=== PATIENT | female | born 2000 | race Two or more races ===

== ENCOUNTER 2023-04-29 16:22 | Emergency (ER) | payer MEDICAID, OTHER ==
[~2023-04-29] VITALS: Ht 162.6 cm; Wt 97.6 kg
[2023-04-29 16:23] VITALS: BP 121/77; RESP 18; O2SAT 99
[2023-04-29 16:35] VITALS: PULSE 151
[2023-04-29 17:15] LABS: Basophils # (auto) 0 10 ^3/uL (0-0.2); Basophils % (auto) 0.2 % (0.0-2.0); Eosinophils # (auto) 0 10 ^3/uL (0-0.8); Eosinophils % (auto) 0.1 % (0.0-7.0); Hemoglobin 14.9 g/dL (12.2-16.2); Lymphocytes # (auto) 0.5 10 ^3/uL (0.4-5.4); Lymphocytes % (auto) 3.9 % (10.0-50.0); Mean Corpuscular Hemoglobin 28.9 pg (28.0-32.0); Mean Corpuscular Hgb Conc. 33.8 g/dL (32.0-36.0); Mean Corpuscular Volume 85.3 fL (80.0-100.0); Monocytes # (auto) 0.4 10 ^3/uL (0-1.3); Monocytes % (auto) 2.6 % (0.0-12.0); Neutrophils # (auto) 13.1 10 ^3/uL (1.6-8.6); Neutrophils % (auto) 93.2 % (37.0-80.0); Nucleated Red Blood Cells % 0.1 %; Red Blood Cells 5.15 10^6/uL (4.0-5.20); Red Cell Distribution Width 15.1 % (11.8-14.3)
[2023-04-29 17:36] LABS: Alanine Aminotransferase 56 U/L (7-40); Alkaline Phosphatase 103 U/L (46-116); Anion Gap 8 (5-15); BUN/Creatinine Ratio 30.3 (10.0-20.0); Blood Urea Nitrogen 20 mg/dL (9-23); Calcium 9.2 mg/dL (8.7-10.4); Carbon Dioxide 27 mmol/L (20-30); Chloride 100 mmol/L (98-107); Glucose 106 mg/dL (74-106); Potassium 3.8 mmol/L (3.5-5.1); Sodium 135 mmol/L (136-145)
[2023-04-29 17:37] LABS: Albumin 4.8 g/dL (3.2-4.8); Aspartate Aminotransferase 24 U/L (13-40); Bilirubin, Total 1.8 mg/dL (0.2-1.0); Total Protein 7.6 g/dL (5.7-8.2)
== END 2023-04-29 19:16 | disposition left against medical advice (07) ==
LOC: ER 16:22
DX: R07.9 Chest pain, unspecified (principal); Z53.21 Procedure and treatment not carried out due to patient leaving prior to being seen by health care provider
CPT/HCPCS: 36415; 80053; 84484; 85025

== ENCOUNTER 2023-06-12 16:50 | Emergency (ER) | payer MEDICAID ==
[~2023-06-12] VITALS: Ht 162.6 cm; Wt 98.0 kg
[2023-06-12] MEDS ORDERED: SODIUM CHLORIDE 0.9% 1,000 ML IV ONE ×2 (17:30)
[2023-06-12] MEDS ORDERED: ACETAMINOPHEN 325 MG TAB PO ONE (17:30)
[2023-06-12 17:48] LABS: Basophils # (auto) 0 10 ^3/uL (0-0.2); Basophils % (auto) 0.5 % (0.0-2.0); Eosinophils # (auto) 0.1 10 ^3/uL (0-0.8); Eosinophils % (auto) 0.6 % (0.0-7.0); Hematocrit 42.9 % (36.0-46.0); Hemoglobin 14.6 g/dL (12.2-16.2); Lymphocytes # (auto) 0.7 10 ^3/uL (0.4-5.4); Lymphocytes % (auto) 7.7 % (10.0-50.0); Mean Corpuscular Hemoglobin 28.8 pg (28.0-32.0); Mean Corpuscular Volume 84.7 fL (80.0-100.0); Monocytes # (auto) 0.8 10 ^3/uL (0-1.3); Monocytes % (auto) 9.1 % (0.0-12.0); Neutrophils # (auto) 7.3 10 ^3/uL (1.6-8.6); Neutrophils % (auto) 82.1 % (37.0-80.0); Nucleated Red Blood Cells % 0.1 %; Red Blood Cells 5.06 10^6/uL (4.0-5.20); Red Cell Distribution Width 13.6 % (11.8-14.3); White Blood Cell 8.8 10^3/uL (4.4-10.8)
[2023-06-12] MEDS ORDERED: METH4PAK PO (21:53)
[2023-06-12] MEDS ORDERED: AMOX875T4 PO (21:53)
[2023-06-12] MEDS ORDERED: ALBU108A5 IN (21:53)
[2023-06-12] MEDS ORDERED: PROM1SOL4 PO (21:53)
[2023-06-12 22:09] VITALS: BP 142/85; PULSE 106; RESP 18; TEMP 100.2; O2SAT 98
== END 2023-06-12 22:13 | disposition home or self-care (01) ==
LOC: ER 16:50
DX: R07.9 Chest pain, unspecified (principal); J18.9 Pneumonia, unspecified organism; R50.9 Fever, unspecified
CPT/HCPCS: 36415; 71045; 84484; 85025; 93005; 96360; 99285; J7030

== ENCOUNTER 2024-04-18 08:26 | Emergency (ER) | payer MEDICAID ==
[~2024-04-18] VITALS: Ht 162.6 cm; Wt 96.8 kg
[~2024-04-18 08:26] MED LIST: ALBU108A5 IN; AMOX875T4 PO; METH4PAK PO; PROM1SOL4 PO
[2024-04-18 08:49] LABS: Urine Bacteria None Seen /hpf (None Seen)
--- NOTE | 2024-04-18 08:53 | ED.PDOC ---
GI ASSESSMENT HPI Comments 24 Y F, presents to the ED with N/V/D persistent for 1wk. Patient relays that she has not been able to hold down food for 1wk and has been consistently vomiting with associated diarrhea. Patient states that her last menstrual period was 03/03/2024. Patient also states that she is experiencing R calf cramps. Patient denies any coughing, congestion, or body aches. Chief Complaint: Nausea/Vomiting Time Seen by MD: 08:37 Primary Care Provider: OTIS Reviewed Notes: Medications, Allergies Allergies: Coded Allergies: NO KNOWN ALLERGIES (Unverified , 04/29/23) Home Meds Active Scripts Promethazine-Dm (Promethazine Dm 6.25-15 mg/5Ml) 1 Chelsy Chelsy, 10 ML PO TID PRN, #240 ML Prov:JULES HARE UNIX ADMINISTRATOR 06/12/23 Albuterol Sulfate (Albuterol Sulfate Hfa) 108 Mcg/Act Aer, 108 MCG IN TID PRN, #1 AER Prov:JULES HARE 06/12/23 Methylprednisolone (Medrol Dosepak) 4 Mg Rashid, 4 MG PO UD, #21 TAB UAD Prov:JULES HAREP 06/12/23 Amoxicillin & Pot Clavulanate (Amoxicillin/Potassium Cla) 875 Mg Tab, 1 TAB PO BID for 10 Days, #20 TAB Prov:JULES HARE 06/12/23 Information Source: Patient Mode of Arrival: Ambulatory Timing: Weeks Duration: Since onset Quality: None Vomitus: Watery Stool: Watery Severity: Moderate Recent: None Recent Hx of: None Pain Location: None Modifying Factors: Nothing Associated sign and symptoms: Nausea, Vomiting, Diarrhea, Other (R calf cramps) Past Medical History PAST MEDICAL HISTORY: Denies Surgical History: Denies all surgeries COMMISSARY AGENT History: Denies all COMMISSARY AGENT Hx Family History Family History: Unknown Social History Smoker: Non-Smoker Alcohol: Denies ETOH Use Drugs: Marijuana Lives In: Home Constitutional: denies: chills, diaphoresis, fatigue, fever, malaise, sweats, weakness, others EENTM: denies: blurred vision, double vision, ear bleeding, ear discharge, ear drainage, ear pain, ear ringing, eye pain, eye redness, hearing loss, mouth pa in, mouth swelling, nasal discharge, nose bleeding, nose congestion, nose pain, photophobia, tearing, throat pain, throat swelling, voice changes, others Respiratory: denies: cough, hemoptysis, orthopnea, SOB at rest, shortness of breath, SOB with excertion, stridor, wheezing, others Cardiovascular: denies: chest pain, dizzy spells, diaphoresis, Dyspnea on exertion, edema, irregular heart beat, left arm pain, lightheadedness, palpitations, PND, syncope, others Gastrointestinal: reports: diarrhea, nausea, poor fluid intake, vomiting; denies: abdomen distended, abdominal pain, blood streaked bowels, constipated, dysphagia, difficulty swallowing, hematemesis, melena, poor appetite, rectal bleeding, rectal pain, others Genitourinary: denies: abnormal vagina bleeding, burning, dyspareunia, dysuria, flank pain, frequency, hematuria, incontinence, pain, , vagina discharge, urgency, others Neurological: denies: dizziness, fainting, headache, left sided numbness, left sided weakness, numbness, paresthesia, pre-existing deficit, right sided numbness, right sided weakness, seizure, speech problems, tingling, tremors, weakness, others Musculoskeletal: reports: others (muscle cramps); denies: back pain, gout, joint pain, joint swelling, muscle pain, muscle stiffness, neck pain Integumetry: denies: bruises, change in color, change in hair/nails, dryness, laceration, lesions, lumps, rash, wounds, others Allergic/Immunocompromised: denies: Difficulty Healing, Frequent Infections, Hives, Itching, others Hematologic/Lymphatic: denies: anemia, blood clots, easy bleeding, easy bruising, swollen glands, others Endocrine: denies: excessive hunger, excessive sweating, excessive thirst, excessive urination, flushing, intolerance to cold, intolerance to heat, unexplained weight gain, unexplained weight loss, others Psychiatric: denies: anxiety, bipolar disorder, depression, hopeless, panic disorder, schizophrenia, sleepless, suicidal, others All Other Systems: Reviewed and Negative Physical Exam General Appearance: No Apparent Distress, Normal HEENT: Normal ENT Inspection, Pharynx Normal, TMs Normal Neck: Full Range of Motion, Non-Tender, Normal, Normal Inspection Respiratory: Chest Non-Tender, Lungs Clear, No Accessory Muscle Use, No Respiratory Distress, Normal Breath Sounds Cardiovascular: No Edema, No JVD, No Murmur, No Gallop, Normal Peripheral Pulses, Regular Rate/Rhythm Breast Exam: Deferred Gastrointestinal: No Organomegaly, Non Tender, No Pulsatile Mass, Normal Bowel Sounds, Soft Genitalia: Deferred Pelvic: Deferred Rectal: Deferred Extremities: No calf tenderness, Normal capillary refill, Normal inspection, Normal range of motion, Non-tender, No pedal edema Musculoskeletal : Apperance: Normal Neurologic: Alert, results technician II-XII nml as Tested, No Motor Deficits, Normal Affect, Normal Mood, No Sensory Deficits Cerebellar Function: Normal Reflexes: Normal Skin: Dry, Normal Color, Warm Lymphatic: No Adenopathy Was a procedure done? Was a procedure done?: No GI differential Dx Differential Diagnosis: Electrolyte Imbalance, Food Poisoning, , Viral X-Ray, Labs, Meds, VS Vital Signs Date Time Temp Pulse Resp B/P (MAP) Pulse Ox O2 Delivery O2 Flow Rate FiO2 04/18/24 09:05 98.2 87 20 136/91 (106) 98 98.2 04/18/24 09:05 83 18 98 Room Air* 0 21 04/18/24 08:32 97.0 105 18 123/78 (93) 98 Lab Test 04/18/24 08:58 04/18/24 08:44 Range/Units White Blood Count 14.0 H 4.4-10.8 10^3/uL Red Blood Count 5.50 H 4.0-5.20 10^6/uL Hemoglobin 16.0 12.2-16.2 g/dL Hematocrit 46.9 H 36.0-46.0 % Mean Corpuscular Volume 85.4 80.0-100.0 fL Mean Corpuscular Hemoglobin 29.0 28.0-32.0 pg Mean Corpuscular Hemoglobin Concent 34.0 32.0-36.0 g/dL Red Cell Distribution Width 13.4 11.8-14.3 % Platelet Count 262 140-450 10^3/uL Mean Platelet Volume 8.7 6.9-10.8 fL Neutrophils (%) (Auto) 87.6 H 37.0-80.0 % Lymphocytes (%) (Auto) 7.4 L 10.0-50.0 % Monocytes (%) (Auto) 4.0 0.0-12.0 % Eosinophils (%) (Auto) 0.7 0.0-7.0 % Basophils (%) (Auto) 0.3 0.0-2.0 % Neutrophils # (Auto) 12.3 H 1.6-8.6 10 ^3/uL Lymphocytes # (Auto) 1.0 0.4-5.4 10 ^3/uL Monocytes # (Auto) 0.6 0-1.3 10 ^3/uL Eosinophils # (Auto) 0.1 0-0.8 10 ^3/uL Basophils # (Auto) 0 0-0.2 10 ^3/uL Nucleated Red Blood Cells 0.0 % Sodium Level 139 136-145 mmol/L Potassium Level 4.0 3.5-5.1 mmol/L Chloride Level 108 H 98-107 mmol/L Carbon Dioxide Level 21 20-31 mmol/L Anion Gap 10 5-15 Blood Urea Nitrogen 10 9-23 mg/dL Creatinine 0.70 0.550-1.02 mg/dL Glomerular Filtration Rate Calc 123 >90 mL/min BUN/Creatinine Ratio 14.3 10.0-20.0 Serum Glucose 124 H 74-106 mg/dL Calcium Level 9.7 8.7-10.4 mg/dL Total Bilirubin 1.3 H 0.2-1.0 mg/dL Aspartate Amino Transferase (AST) 18 13-40 U/L Alanine Aminotransferase (ALT) 37 7-40 U/L Alkaline Phosphatase 103 46-116 U/L Total Protein 7.7 5.7-8.2 g/dL Albumin 4.7 3.2-4.8 g/dL Beta HCG, Quantitative 05878.6 H 1.5-4.2 mIU/mL Urine Color Light-yellow Yellow Urine Clarity Cloudy H Clear Urine pH 5.5 5.0-9.0 Urine Specific [place] 1.019 1.001-1.035 Urine Protein Trace H Negative Urine Ketones 1+ H Negative Urine Blood Negative Negative /uL Urine Nitrite Negative Negative Urine Bilirubin Negative Negative Urine Urobilinogen Normal Negative mg/dL Urine Leukocyte Esterase 3+ Negative /uL Urine RBC 8 0 - 4 /hpf Urine WBC 9 0 - 5 /hpf Urine Squamous Epithelial Cells Few <5 /hpf Urine Bacteria None seen None Seen /hpf Urine Mucus Few None Seen Urine Glucose Normal Normal mg/dL Urine Test Positive Negative Current Medications Medications (Trade) Dose Ordered Sig/Nabor Route Start Time Stop Time Status Last Admin Sodium Chloride 1,000 ml @ 1,000 mls/hr Q1H ONCE IV 04/18/24 08:45 04/18/24 09:44 DC 04/18/24 09:05 Ondansetron HCl (Zofran) 4 mg ONCE ONCE IV 04/18/24 08:45 04/18/24 08:46 DC 04/18/24 09:05 Sodium Chloride 1,000 ml @ 1,000 mls/hr Q1H ONCE IV 04/18/24 10:00 04/18/24 10:59 DC 04/18/24 10:19 [place] [address] Ph: [phone] DIAGNOSTIC IMAGING Diagnostic Imaging Report : [id number] Signed PATIENT: AALIYAH GLEASON ACCT: [id number] UNIT: [id number] : 2000 LOC: ER ROOM / BED: / AGE / SEX: 24 / F ADM STATUS: REG ER SERVICE 0000 ORDERING PHYSICIAN: YASSINE ANDERSON MD PROCEDURE(s): OBTVG - OB TRANS VAGINAL US REASON: COMFIRM IUP ORDER NUMBER(s): [id number], ACCESSION NUMBER(s): [id number] CLINICAL HISTORY: new , confirm intrauterine . COMPARISON: None TECHNIQUE: Transvaginal and transabdominal grayscale sonographic imaging of the uterus and ovaries was performed, assisted by color Doppler technique. Duplex Doppler ultrasound of both ovaries was also performed. FINDINGS: The uterus measures 10.1 x 6.1 x 6.3 cm. There is an intrauterine ges tational sac with yolk sac visualized. No pole identified at this time. Gestational sac diameter measures 1.06 cm, corresponding to an estimated gestational age of 5 weeks 1 day. Right ovary measures 3.2 x 1.9 x 2.5 cm. Arterial and venous blood flow demonstrated. Cystic structure in the right ovary measures 1.92 cm, possible corpus luteal cyst. Left ovary is not visualized. IMPRESSION: 1. Intrauterine gestational sac with yolk sac identified. Estimated gestational age of 5 weeks 1 day based on gestational sac diameter. No pole identified at this time, likely due to early gestational age. 2. Likely corpus luteal cyst in the right ovary. Left ovary not visualized. ATED BY: JOSUE ZACARIAS DO DICTATED DATE/TIME: 04/18/24 1151 SIGNED BY: JOSUE ZACARIAS DO SIGNED DATE/TIME: 04/18/24 1151 CC: Time of 1ST Reevaluation: 09:07 Reevaluation 1ST: Unchanged Patient Education/Counseling: Diagnosis, Treatment Family Education/Counseling: No Family Present Departure 1 Departure Time of Disposition: 12:23 (Patient is . Patient has leukocytes we will cover with antibiotics. We will discharge patient with Zofran for hyperemesis gravidarum.) Impression: Primary Impression: Hyperemesis gravidarum before end of 22 week gestation with dehydration Additional Impressions: Qualified Codes: Z3A.01 - Less than 8 weeks gestation of UTI (urinary tract infection) Qualified Codes: N30.00 - Acute cystitis without hematuria Disposition: HOME / SELF CARE / HOMELESS Condition: Stable Referrals: TOVA GREENFIELD DO Additional Instructions: You are . Your ultrasound dates you had approximately 5 weeks and 1 day. You were prescribed Zofran to take as needed for nausea. You also had some white cells in your urine. You were prescribed antibiotics. Please take as directed. You were referred to OBGYN. Please follow up with them my your earliest convenience. If your symptoms worsen or if any other concerns please return to the emergency room. e-Prescriptions Cephalexin Monohydrate (Cephalexin) 500 Mg Cap 500 MG PO Q6HR for 5 Days, #20 MG Prov: YASSINE ANDERSON MD 04/18/24 Ondansetron Odt 4MG Tab (ZOFRAN PO) 4 Mg Tb 4 MG PO TID PRN for 4 Days, #12 TAB ODT TAB-DISSOLVE IN MOUTH, THEN SWALLOW Prov: YASSINE ANDERSON MD 04/18/24 Discharged With: Self Critical Care Note Critical Care Time?: No Stability Stability form required: No Heart Score Heart Score: Heart Score Response (Comments) Value History N/A 0 EKG N/A 0 Age N/A 0 Risk Factors N/A 0 Troponin N/A 0 Total 0 I personally scribed for YASSINE ANDERSON MD ([email or web address]) on 04/18/24 at 08:53. Electronically submitted by Belkis Jack ([email or web address]). I personally scribed for YASSINE ANDERSON MD ([email or web address]) on 04/18/24 at 11:55. Electronically submitted by Corinne Diaz ([email or web address]). YASSINE ANDERSON MD Apr 18, 2024 08:53
[2024-04-18 09:02] LABS: Urine Blood Negative /uL (Negative); Urine Color Light-Yellow (Yellow); Urine Mucus FEW (None Seen); Urine Protein, UAD TRACE (Negative); Urine Specific Gravity 1.019 (1.001-1.035); Urine Urobilinogen Normal (Negative); Urine WBC 9 /hpf (0 - 5); Urine pH 5.5 (5.0-9.0)
[2024-04-18 09:05] VITALS: PULSE 83; RESP 18; O2SAT 98
[2024-04-18] MEDS: SODIUM CHLORIDE 0.9% 1,000 ML IV ONE ×2 (09:05→10:19)
[2024-04-18] MEDS: ONDANSETRON HCL 4 MG/2 ML VIAL IV ONE (09:05)
[2024-04-18 09:09] LABS: Basophils # (auto) 0 10 ^3/uL (0-0.2); Basophils % (auto) 0.3 % (0.0-2.0); Eosinophils # (auto) 0.1 10 ^3/uL (0-0.8); Eosinophils % (auto) 0.7 % (0.0-7.0); Hematocrit 46.9 % (36.0-46.0); Lymphocytes % (auto) 7.4 % (10.0-50.0); Mean Corpuscular Volume 85.4 fL (80.0-100.0); Monocytes # (auto) 0.6 10 ^3/uL (0-1.3); Neutrophils # (auto) 12.3 10 ^3/uL (1.6-8.6); Neutrophils % (auto) 87.6 % (37.0-80.0); Platelet Count (auto) 262 10^3/uL (140-450); Red Cell Distribution Width 13.4 % (11.8-14.3)
[2024-04-18 09:23] LABS: Urine Clarity Cloudy (Clear)
[2024-04-18 09:25] LABS: Alanine Aminotransferase 37 U/L (7-40); Albumin 4.7 g/dL (3.2-4.8); Alkaline Phosphatase 103 U/L (46-116); Anion Gap 10 (5-15); Aspartate Aminotransferase 18 U/L (13-40); BUN/Creatinine Ratio 14.3 (10.0-20.0); Blood Urea Nitrogen 10 mg/dL (9-23); Calcium 9.7 mg/dL (8.7-10.4); Carbon Dioxide 21 mmol/L (20-31); Sodium 139 mmol/L (136-145)
[2024-04-18 09:26] LABS: Chloride 108 mmol/L (98-107); Glucose 124 mg/dL (74-106); Total Protein 7.7 g/dL (5.7-8.2)
[2024-04-18 09:30] LABS: Bilirubin, Total 1.3 mg/dL (0.2-1.0)
--- NOTE | 2024-04-18 11:53 | DVH ---
CLINICAL HISTORY: new , confirm intrauterine . COMPARISON: None TECHNIQUE: Transvaginal and transabdominal grayscale sonographic imaging of the uterus and ovaries wa s performed, assisted by color Doppler technique. Duplex Doppler ultrasound of both ovaries was also performed. FINDINGS: The uterus measures 10.1 x 6.1 x 6.3 cm. There is an intrauterine gestational sac with yolk sac visualized. No pole identified at this time. Gestational sac diameter measures 1.06 cm, c orresponding to an estimated gestational age of 5 weeks 1 day. Right ovary measures 3.2 x 1.9 x 2.5 cm. Arterial and venous blood flow demonstrated. Cystic structur e in the right ovary measures 1.92 cm, possible corpus luteal cyst. Left ovary is not visualized. IMPRESSION: 1. Intrauterine gestational sac with yolk sac identified. Estimated gestational age of 5 weeks 1 day based on gestational sac diameter. No pole identified at this time, likely due to early gestati onal age. 2. Likely corpus luteal cyst in the right ovary. Left ovary not visualized.
[2024-04-18] MEDS ORDERED: CEPH500C PO (12:29)
[2024-04-18] MEDS ORDERED: ZOFR4T PO (12:29)
[2024-04-18 12:43] VITALS: BP 127/71; PULSE 100; RESP 18; TEMP 97.7; O2SAT 100
== END 2024-04-18 12:46 | disposition home or self-care (01) ==
LOC: ER 08:26
DX: O21.1 Hyperemesis gravidarum with metabolic disturbance (principal); R10.2 Pelvic and perineal pain; O23.41 Unspecified infection of urinary tract in pregnancy, first trimester; E86.0 Dehydration; F15.90 Other stimulant use, unspecified, uncomplicated; Z3A.01 Less than 8 weeks gestation of pregnancy; Z79.899 Other long term (current) drug therapy
CPT/HCPCS: 36415; 76801; 76817; 80053; 81001; 81025; 84702; 85025; 96361; 96374; 99285; J2405; J7030

== ENCOUNTER 2024-09-09 22:47 | Observation (INO) | payer MEDICAID, OTHER ==
[~2024-09-09] VITALS: Ht 162.6 cm; Wt 92.5 kg
[~2024-09-09 22:47] MED LIST changes: +CEPH500C PO; +ZOFR4T PO
[2024-09-09] MEDS: TERBUTALINE SULFATE 1 MG/ML 1ML VIAL SC SCH (23:38)
[2024-09-10] MEDS: BETAMETHASONE ACET (30mg/5ml) 5ml Vial 6mg/ml IM ONE (00:21)
--- NOTE | 2024-09-10 00:40 | DVH ---
EXAM: US OB ULTRASOUND COMP GTR 14 WKS HISTORY: Vaginal bleeding TECHNIQUE: Multiple real-time grayscale images of the gravid uterus with duplex Doppler color flow an d M-mode spectral analysis. COMPARISON: None FINDINGS: IUP single live fetus at 26 weeks, 6 days average ultrasound age (AUA) based on composite averages of the BPD, head circumference, abdominal circumference and femur length MEASUREMENTS: BPD: 6.86 cm GA: 27 w 4d HC: 25.32 cm GA: 27w 3d AC: 22.99 cm GA: 27w 2d FL: 4.59 cm GA: 25w 2d Estimated weight 964 grams heart rate 144 beats per minute FRANCISCO 16 cm ANATOMIC SURVEY: Breech Presentation Posterior placenta without previa or abruption Cervix measuures 3.3 cm IMPRESSION: 1. IUP single live fetus at 26 weeks, 6 days AUA corresponding to an ISAK of December 10, 2024. 2. No abnormality detected.
[2024-09-10] MEDS: NIFEdipine 10 MG CAP PO ONE (01:20)
--- NOTE | 2024-09-10 01:22 | DVHDS2 ---
Physician Discharge Progress N Final Diagnosis: contractions Problems List: (1) 26 weeks gestation of (2) contractions Operations or Procedures: Operations or Procedures S: pt is a 24 yo @ 26.3 wks IUP in triage for vaginal pressure and tightening over abdomen. Pt reports vaginal bleeding while wiping around 5pm on 09/09/24, no vaginal bleeding while in OB triage. Pt denies sexual intercourse or anything in the vagina for at least 24 hours. Pt denies leakage of fluid and endorses +FM. Pt is staying with her mother, care established at [facility], denies complications. OB history: 3 fullterm NSVDs, AB x1. Pt reports she is blood type O negative, has not received Rhogam yet. PMH denies. O: VSS. Vaginal exam refused by patient after educating on need EFM: FHR 150 bpm, moderate variability with accels, no decels. [place]: q1-3minutes apart when pt arrived; none noted at discharge OB Complete SONO WNL; cervical length 3.3 cm RN did not see VB on pt's pad LR 1L IV bolus x1, terbutaline 0.25 mg subq injection x1, procardia 10 mg PO x1, betamethasone 12 mg IM given by RN A: 24 yo @ 26.3 wks Category I EFM tracing contractions P: D/C home Instructed pt to follow up with primary OB/ hospital for second dose of betamethasone on 09/10/2024 and Rhogam injection at [address] Bob consulted, agrees with plan of care PTL precautions reviewed. Other Interventions Other Interventions [place] [address] Ph: [phone] DIAGNOSTIC IMAGING Diagnostic Imaging Report : [id number] Signed PATIENT: AALIYAH GLEASON ACCT: [id number] UNIT: [id number] : 2000 LOC: LD ROOM / BED: TRIAGE1 / A AGE / SEX: 24 / F ADM STATUS: ADM IN SERVICE 2301 ORDERING PHYSICIAN: ASPEN JONES CNM PROCEDURE(s): OBUS - OB ULTRASOUND COMP GTR 14 WKS REASON: Vaginal bleeding ORDER NUMBER(s): [id number], ACCESSION NUMBER(s): [id number] EXAM: US OB ULTRASOUND COMP GTR 14 WKS HISTORY: Vaginal bleeding TECHNIQUE: Multiple real-time grayscale images of the gravid uterus with duplex Doppler color flow and M-mode spectral analysis. COMPARISON: None FINDINGS: IUP single live fetus at 26 weeks, 6 days average ultrasound age (AUA) based on composite averages of the BPD, head circumference, abdominal circumference and femur length MEASUREMENTS: BPD: 6.86 cm GA: 27 w 4d HC: 25.32 cm GA: 27w 3d AC: 22.99 cm GA: 27w 2d FL: 4.59 cm GA: 25w 2d Estimated weight 964 grams heart rate 144 beats per minute FRANCISCO 16 cm ANATOMIC SURVEY: Breech Presentation Posterior placenta without previa or abruption Cervix measuures 3.3 cm IMPRESSION: 1. IUP single live fetus at 26 weeks, 6 days AUA corresponding to an ISAK of December 10, 2024. 2. No abnormality detected. ATED BY: MITZY FORMAN MD DICTATED DATE/TIME: 09/10/2437 SIGNED BY: MITZY FORMAN MD SIGNED DATE/TIME: 09/10/2437 CC: Condition on Discharge: Stable Disposition: Home Discharge Instructions: Diet: Regular Activity: See Comment (pelvic rest) Medications: see med list Follow Up Care: Specialist: Instructed pt to follow up with primary OB/ hospital for second dose of betamethasone on 09/10/2024 and Rhogam injection at 28 weeks. Discharge Statement: "Patient was advised to return to the ER or call 911 if any headaches, dizziness, shortness of breath, chest pain, abdominal pain, bleeding, fevers, or worsening of medical condition. Patient was counseled about treatment plan, medications, possible side effects, patientverbalized understanding. All questions were answered to the best of my ability. This discharge took greater then 30 minutes in planning, reviewing docu mentation, counseling the patient, and discussing with other team members." Visit Coding OBGYN Date of Service: Sep 10, 2024 Billing Provider: ASPEN JONES CNM THREADER OPERATOR Common Visit Codes: 25993-SPXXJQP OBS CARE (HIGH) THREADER OPERATOR Procedure Codes: 32546-06- NON-STRESS TEST ANAMIKA HAWLEY MDWF Sep 10, 2024 01:22
[2024-09-10] MEDS ORDERED: PREN1TAB79 PO (01:25)
[2024-09-10] MEDS: LACTATED RINGER'S 1,000 ML IV SCH (01:32)
[2024-09-10] MEDS: LACTATED RINGER'S 1,000 ML IV ONE (01:33)
== END 2024-09-10 01:45 | disposition home or self-care (01) ==
LOC: LDRP 22:47
PROVIDERS: ADMIT Obstetrics & Gynecology; ATTEND Obstetrics & Gynecology
DX: O60.02 Preterm labor without delivery, second trimester (principal); O26.892 Other specified pregnancy related conditions, second trimester; N89.8 Other specified noninflammatory disorders of vagina; Z3A.26 26 weeks gestation of pregnancy; Z79.899 Other long term (current) drug therapy
CPT/HCPCS: 76805; 81002; 94760; 96360; 96361; 96372; G0378; J0702; J3105